=== PATIENT | male | born 1985 | race Caucasian/White ===

== ENCOUNTER → 2017-03-06 | Day surgery (SDC) | payer OTHER ==
--- NOTE | 2017-03-05 08:37 | MH ---
cc: BERHANE BOYKIN DATE OF ADMISSION 03/06/2017 DATE OF 1985 IDENTIFICATION This is a 31 year-old male with epistaxis. He has significant vessels bilaterally, more so on the right side at the anterior plexus. Plan is for endoscopic control of the epistaxis. PAST MEDICAL HISTORY His past medical history is otherwise noncontributory. PHYSICAL EXAM This is a well-developed, well-nourished male in no apparent distress. HEAD, EYES, EARS, NOSE, AND THROAT: Normocephalic, atraumatic. Extraocular motions intact. External ear canals clear. Lips, oral mucosa and oropharynx show no lesion. Nasal exam confirms positive blood vessels at the anterior plexus bilaterally with recent active bleed. CHEST: The chest is clear to auscultation. HEART: Regular rate. ABDOMEN: Soft. EXTREMITIES: No lesion. NEUROLOGIC: Exam is nonfocal. ASSESSMENT This is a 31-year-old male with epistaxis. PLAN Plan is for endoscopic control of epistaxis under anesthesia. The risks and benefits discussed with the patient. The risks include, but are not limited to those of anesthesia, bleeding, unfavorable scarring, hematoma, abscess, infection, recurrence, septal perforation, septal deviation, nasal obstruction. The patient states she understands and accepts the risks of the procedure. MD DERRICK Barfield/LAYNE /7:42 AM /8:36 AM
[~2017-03-06] VITALS: Ht 177.8 cm; Wt 89.5 kg
[~2017-03-06] MED LIST: ACETAMINOPHEN/HYDROcodone 325 MG/5 MG TAB PO PRN; APREPITANT 40 MG CAP ONE; BACITRACIN TOP OINT 15 GM TUBE ONE; CHLORHEXIDINE GLUCONATE 2 % 1 PACK (2 CLOTHS) TOPICAL PRN; DO NOT ADM ANY ANTICOAGULANT DRUGS PRN; EPINEPHrine HCL (1:1000) 30 MG/30 ML VIAL ONE; FAMOTIDINE 20 MG/2 ML VIAL ONE; INSULIN HUMAN REGULAR 1,000 UNITS/10 ML VIAL SQ PRN; LACTATED RINGER'S 1000 ML IV PRN; LIDOCAINE 1%/EPINEPHrine 1:100,000 SOLN 20 ML VIAL ONE; LIDOCAINE 1%/EPINEPHrine 1:100,000 SOLN 30 ML VIAL INFIL ONE; METOPROLOL TARTRATE 25 MG TAB PO PRN; MIDAZOLAM HCL 2 MG/2 ML VIAL ONE; MORPHINE SULFATE 4 MG/ML INJ IV PRN; ONDANSETRON HCL 4 MG/2 ML VIAL IV PUSH ONE; ONDANSETRON HCL 4 MG/2 ML VIAL IV PUSH PRN; POVIDONE IODINE 5% (ANTISEPSIS KIT) 4 APPLICATIONS EACH NARE PRN; PROPOFOL 200 MG/20 ML AMP IV ONE; SODIUM CHLORID 0.9% 500 ML IV PRN
[2017-03-06 07:28] VITALS: BP 121/83; PULSE 76; RESP 16; TEMP 97.5; O2SAT 98
[2017-03-06 07:45] LABS: AUTOMATED NEUTROPHIL # 2.9 TH/MM3 (1.8-7.7); BASOPHIL % 0.4 % (0.0-2.0); EOSINOPHIL % 0.8 % (0.0-4.0); HEMO FLAGS DIFF FINAL; LYMPH % 34.7 % (9.0-44.0); LYMPHOCYTE # 1.8 TH/MM3 (1.0-4.8); MEAN CELL VOLUME 88.7 FL (80.0-100.0); MEAN CORPUSCULAR HEMOGLOBIN 30.3 PG (27.0-34.0); MEAN CORPUSCULAR HGB CONC 34.2 % (32.0-36.0); MONO % 7.2 % (0.0-8.0); NEUT % 56.9 % (16.0-70.0); PLATELET COUNT 266 TH/MM3 (150-450); RED BLOOD COUNT 4.74 MIL/MM3 (4.50-5.90); RED CELL DISTRIBUTION WIDTH 12.6 % (11.6-17.2); WHITE BLOOD COUNT 5.2 TH/MM3 (4.0-11.0)
--- NOTE | 2017-03-06 07:47 | MP ---
cc: BERHANE BOYKIN DATE OF SURGERY 03/05/2017 DATE OF 1985 INDICATIONS This is a 31-year-old male with epistaxis. He has prominent vessels in the Kiesselbach's plexus and is brought to the operating room for endoscopic control of epistaxis. PREOPERATIVE DIAGNOSIS Epistaxis POSTOPERATIVE DIAGNOSIS Epistaxis PROCEDURE Endoscopic control of epistaxis SUMMARY The patient brought to the operating room, placed in the supine position, successfully placed under general anesthesia and was prepared in the usual fashion for this procedure. The nose was examined. He showed evidence of prominent vessels in the septum, anterior and superior. These were controlled endoscopically and he tolerated direct cautery on the right and then the left. The wound was dressed with topical ointment. He was then suctioned. He was awakened and taken to recovery in stable condition. MD DERRICK Barfield/LAYNE /7:26 AM /7:44 AM
[2017-03-06 09:49] VITALS: BP 112/69; PULSE 69; RESP 20; TEMP 98.7; O2SAT 99
== END | disposition home or self-care (01) ==
LOC: HSDC 06:29
PROVIDERS: ATTEND Specialist
DX: R04.0 Epistaxis (principal)
CPT/HCPCS: 00160; 31238; 85025; J0171; J2250; J2405; J3010; J7120; J8501